=== PATIENT | female | born 1995 | race African-American/Black ===

== ENCOUNTER 2018-04-06 20:38 | Emergency (ER) | payer MEDICAID ==
[~2018-04-06] VITALS: Ht 157.5 cm; Wt 72.6 kg
[2018-04-06 20:41] VITALS: BP 150/91
[2018-04-06 21:34] VITALS: BP 143/90
== END 2018-04-06 21:34 | disposition home or self-care (01) ==
LOC: MED 20:38
DX: J06.9 Acute upper respiratory infection, unspecified (principal); Z88.8 Allergy status to other drugs, medicaments and biological substances
CPT/HCPCS: 71045; 99283